=== PATIENT | female | born 1980 | race African-American/Black ===

== ENCOUNTER 2019-05-12 15:58 | Emergency (ER) | payer OTHER ==
[2019-05-12] MEDS ORDERED: ASPIRIN 81 MG TABLET, CHEWABLE PO ONE (16:29)
--- NOTE | 2019-05-12 16:36 | ER Document Report ---
ED Medical Screen (RME) - General Stated Complaint: CHEST PAIN Time Seen by Provider: 05/12/19 16:28 Primary Care Provider: MARIVEL MAST MD [Primary Care Provider] - Follow up as needed Mode of Arrival: Ambulatory Information source: Patient Notes: 39-year-old female presented to ED for complaint of substernal chest pain. She states the pain radiated down her left arm. She states after a while it felt like heartburn. And then later it felt like someone was stepping on her chest. Then she states it changed to a pinching feeling. She states she is concerned that she might be having a heart attack. She does have a past history of a cholecystectomy otherwise no medical history. She is alert oriented respirations regular and unlabored speaking in full sentences. 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 I have greeted and performed a rapid initial assessment of this patient. A comprehensive ED assessment and evaluation of the patient, analysis of test res ults and completion of medical decision making process will be conducted by an additional ED providers. - Related Data Allergies/Adverse Reactions: No Known Drug Allergies Allergy (Mild, Verified 05/12/19 16:19) dial soap Adverse Reaction (Unknown, Uncoded 05/12/19 16:19) Past Medical History - Past Medical History Cardiac Medical History: Pulmonary Medical History: Neurological Medical History: Denies: Hx Seizures GI Medical History: Musculoskeltal Medical History: Infectious Medical History: Past Surgical History: Physical Exam - Vital signs Vitals: Temp Pulse Resp BP Pulse Ox 98.7 F 84 16 141/84 H 97 05/12/19 16:11 05/12/19 16:11 05/12/19 16:11 05/12/19 16:11 05/12/19 16:11 Course - Vital Signs Vital signs: Temp Pulse Resp BP Pulse Ox 98.7 F 84 16 141/84 H 97 05/12/19 16:11 05/12/19 16:11 05/12/19 16:11 05/12/19 16:11 05/12/19 16:11 Doctor's Discharge - Discharge Referrals: MARIVEL MAST MD [Primary Care Provider] - Follow up as needed
--- NOTE | 2019-05-12 17:02 | RADIOLOGY REPORT (SQ) ---
EXAM DESCRIPTION: CHEST 2 VIEWS COMPLETED DATE/TIME: 05/12/2019 4:55 pm REASON FOR STUDY: chest pain COMPARISON: 03/22/2011 EXAM PARAMETERS: NUMBER OF VIEWS: two views TECHNIQUE: Digital Frontal and Lateral radiographic views of the chest acquired. RADIATION DOSE: NA LIMITATIONS: none FINDINGS: LUNGS AND PLEURA: No opacities, masses or pneumothorax. No pleural effusion. MEDIASTINUM AND HILAR STRUCTURES: No masses or contour abnormalities. HEART AND VASCULAR STRUCTURES: Heart normal size. No evidence for failure. BONES: No acute findings. HARDWARE: None in the chest. OTHER: No other significant finding. IMPRESSION: NO ACUTE RADIOGRAPHIC FINDING IN THE CHEST. TECHNICAL DOCUMENTATION: JOB ID: [id number] [employer]- All Rights Reserved Reading location - IP/workstation name: [email or web address]
[2019-05-12 17:27] LABS: ALBUMIN 4.7 g/dL (3.5-5.0); ALKALINE PHOSPHATASE 76 U/L (38-126); ANION GAP 10 (5-19); ASPARTATE AMINO TRANSFERASE 23 U/L (14-36); BILIRUBIN,DIRECT 0.2 mg/dL (0.0-0.4); BILIRUBIN,TOTAL 0.6 mg/dL (0.2-1.3); BLOOD UREA NITROGEN 10 mg/dL (7-20); CARBON DIOXIDE 26 mmol/L (22-30); CHLORIDE 103 mmol/L (98-107); CREATINE KINASE 169 U/L (30-135); GLUCOSE 112 mg/dL (75-110); POTASSIUM 4.3 mmol/L (3.6-5.0); TOTAL PROTEIN 8.6 g/dL (6.3-8.2)
[2019-05-12 17:39] LABS: TROPONIN I < 0.012 ng/mL
[2019-05-12] MEDS ORDERED: MAG HYDROX/AL HYDROX/SIMETH SUSP 30 ML UDCUP PO ONE (18:03)
[2019-05-12] MEDS ORDERED: METOCLOPRAMIDE HCL ORAL SOLN 10 MG/10 ML UDCUP PO ONE (18:03)
[2019-05-12] MEDS ORDERED: LIDOCAINE 2% VISCOUS SOLN 20 ML UDCUP PO ONE (18:03)
[2019-05-12 18:26] LABS: INTERNATIONAL RATION (INR) 1.05; PROTHROMBIN TIME 13.7 SEC (11.4-15.4)
[2019-05-12 18:27] LABS: PARTIAL THROMBOPLASTIN TIME 28.3 SEC (23.5-35.8)
[2019-05-12 18:56] LABS: HEMATOCRIT 39.3 % (36.0-47.0); HEMOGLOBIN 12.9 g/dL (12.0-15.5); MEAN CORPUSCULAR HEMOGLOBIN 29.5 pg (27.0-33.4); MEAN CORPUSCULAR HGB CONC 32.9 g/dL (32.0-36.0); MEAN CORPUSCULAR VOLUME 90 fl (80-97); RED BLOOD COUNT 4.39 10^6/uL (3.72-5.28); RED CELL DISTRIBUTION WIDTH 14.5 % (11.5-14.0); WHITE BLOOD COUNT 5.7 10^3/uL (4.0-10.5)
--- NOTE | 2019-05-12 19:22 | RADIOLOGY REPORT (SQ) ---
EXAM DESCRIPTION: CTA CHEST COMPLETED DATE/TIME: 05/12/2019 7:07 pm REASON FOR STUDY: cp COMPARISON: None. TECHNIQUE: CT scan of the chest performed using helical scanning technique with dynamic intravenous contrast injection. Images reviewed with lung, soft tissue and bone windows. Reconstructed coronal and sagittal MPR images reviewed. Additional 3 dimensional post-processing performed to develop Maximal Intensity Projection images ([place] P). All images stored on PACS. All CT scanners at this facility use dose modulation, iterative reconstruction, and/or weight based d osing when appropriate to reduce radiation dose to as low as reasonably achievable (ALARA). [facility]: Dose Right [facility]: CareDose [facility]: Dose Right [facility]: Teradose 4D [facility]: Evocalize CONTRAST TYPE AND DOSE: contrast/concentration: Isovue 350.00 mg/ml; Total Contrast Delivered: 69.0 ml; Total Saline Delivered: 80.0 ml Contrast bolus optimized for the pulmonary arteries. Not diagnostic for the aorta. RENAL FUNCTION: GFR > 60. RADIATION DOSE: CT Rad equipment meets quality standard of care and radiation dose reduction techniq ues were employed. CTDIvol: 19.8 - 23.2 mGy. DLP: 862 mGy-cm. . LIMITATIONS: None. FINDINGS: LUNGS AND PLEURA: The trachea and main bronchi are patent. There is no bronchiectasis or mucus plugging. The subpleural opacity in the posterior basal segment of the right lower lobe is non specific and could represent an area of round atelectasis. There is no alveolar consolidation or sebastian und-glass opacification. There is no pulmonary nodule or mass. There is no pleural effusion, pleura l thickening or pleural calcification. AORTA AND GREAT VESSELS: Evaluation of the thoracic aorta is limited as the contrast bolus was optimi zed for evaluation of the pulmonary arteries. There is no thoracic aortic dissection or aneurysmal d ilatation. HEART: No cardiomegaly or pericardial effusion. PULMONARY ARTERIES: No pulmonary embolus. HILAR AND MEDIASTINAL STRUCTURES: No enlarged mediastinal hilar lymph nodes. HARDWARE: None in the chest. UPPER ABDOMEN: No acute findings. THYROID AND OTHER SOFT TISSUES: No masses or adenopathy. BONES: No acute finding. 3D MIPS: Confirm above findings. OTHER: No other finding. IMPRESSION: No pulmonary embolus. The subpleural opacity in the posterior basal segment of the righ t lower lobe is nonspecific and could represent an area of round atelectasis. COMMENT: Quality ID # [id number]: Final reports with documentation of one or more dose reduction techniques (e.g., Automated exposure control, adjustment of the mA and/or kV according to patient size, use of iterative reconstruction technique) TECHNICAL DOCUMENTATION: JOB ID: [id number] [employer]- All Rights Reserved Reading location - IP/workstation name: [email or web address]
[2019-05-12 19:24] LABS: ABSOLUTE LYMPHOCYTES# (MANUAL) 1.9 10^3/uL (0.5-4.7); ABSOLUTE MONOCYTES # (MANUAL) 0.2 10^3/uL (0.1-1.4); BASOPHILS % (MANUAL) 1 % (0-2); EOSINOPHILS % (MANUAL) 1 % (0-6); LYMPHOCYTES % (MANUAL) 34 % (13-45); MONOCYTES % (MANUAL) 3 % (3-13); SEGMENTED NEUTROPHILS % (MAN) 61 % (42-78); TOTAL CELLS COUNTED 100
[2019-05-12 19:25] LABS: ANISOCYTOSIS SLIGHT; HYPOCHROMASIA SLIGHT; PLATELET CLUMPS PRESENT; PLATELET COMMENT ADEQUATE; PLATELET COUNT 163 10^3/uL (150-450)
--- NOTE | 2019-05-12 19:58 | EKG REPORT ---
SEVERITY:- ABNORMAL ECG - SINUS RHYTHM LEFT ATRIAL ABNORMALITY : Confirmed by: Elvia Kennedy MD 12-May-2019 19:57:52
--- NOTE | 2019-05-12 20:56 | ER Document Report ---
ED Cardiac - General Chief Complaint: Chest Pain Stated Complaint: CHEST PAIN Time Seen by Provider: 05/12/19 16:28 Primary Care Provider: MARIVEL MAST MD [ACTIVE STAFF] - Follow up as needed Mode of Arrival: Ambulatory Information source: Patient - [facility] Notes: Patient presents with chest pain that started approximately 2 PM. She states that it was between both breast and sharp. Nothing made it better or worse. She states it then radiated over towards the left shoulder. And now she has a sharp poking sensation in the left upper chest. No significant shortness of breath. No nausea or vomiting. No sweating. No previous history of cardiac disease. Patient states she has had no type of cardiac evaluation in the past. This pain has been constant. Patient denies any trauma. No recent cough cold or congestion. - Related Data Allergies/Adverse Reactions: No Known Drug Allergies Allergy (Mild, Verified 05/12/19 16:19) dial soap Adverse Reaction (Unknown, Uncoded 05/12/19 16:19) Past Medical History - General Information source: Patient - Social History Smoking Status: Never Smoker Frequency of alcohol use: None Drug Abuse: None Family History: Reviewed & Not Pertinent Patient has suicidal ideation: No Patient has homicidal ideation: No - Past Medical History Cardiac Medical History: Pulmonary Medical History: Neurological Medical History: Denies: Hx Seizures GI Medical History: Musculoskeletal Medical History: Infectious Medical History: Past Surgical History: Review of Systems - Review of Systems Constitutional: denies: Chills, Fever Cardiovascular: Chest pain. denies: Palpitations Respiratory: denies: Cough Gastrointestinal: denies: Diarrhea, Vomiting -: Yes All other systems reviewed and negative Physical Exam - Vital signs Vitals: Temp Pulse Resp BP Pulse Ox 98.7 F 84 16 141/84 H 97 05/12/19 16:11 05/12/19 16:11 05/12/19 16:11 05/12/19 16:11 05/12/19 16:11 Interpretation: Hypertensive - General General appearance: Appears well, Alert - HEENT Head: Normocephalic, Atraumatic Eyes: Normal Pupils: PERRL - Respiratory Respiratory status: No respiratory distress Chest status: Nontender Breath sounds: Normal Chest palpation: Normal - Cardiovascular Rhythm: Regular Heart sounds: Normal auscultation Murmur: No - Abdominal Inspection: Normal Distension: No distension Bowel sounds: Normal Tenderness: Nontender Organomegaly: No organomegaly - Back Back: Normal, Nontender - Extremities General upper extremity: Normal inspection, Nontender, Normal color, Normal ROM, Normal temperature General lower extremity: Normal inspection, Nontender, Normal color, Normal ROM, Normal temperature, Normal weight bearing. No: Crescencio's sign - Neurological Neuro grossly intact: Yes Cognition: Normal Orientation: AAOx4 [place] Coma Scale Eye Opening: Spontaneous [place] Coma Scale Verbal: Oriented [place] Coma Scale Motor: Obeys Commands [place] Coma Scale Total: 15 Speech: Normal Motor strength normal: LUE, RUE, LLE, RLE Sensory: Normal - Psychological Associated symptoms: Normal affect, Normal mood - Skin Skin Temperature: Warm Skin Moisture: Dry Skin Color: Normal Course - Re-evaluation Re-evalutation: 05/12/19 20:52 Patient presents with chest pain that is been constant. She has negative enzymes. She has a heart score of 1. She appears to have some hypertension which I will start the patient on Norvasc. I feel the patient is stable for d ischarge and to follow-up as an outpatient with a stress test. She has a CT scan shows no evidence of pulmonary embolism or aortic pathology. She does have some question around atelectasis but this is at the right base of the lung and does not appear associated in any way with her symptoms. - Vital Signs Vital signs: Temp Pulse Resp BP Pulse Ox 98.3 F 84 11 L 140/96 H 99 05/12/19 19:01 05/12/19 16:11 05/12/19 19:01 05/12/19 19:01 05/12/19 19:01 - Laboratory Result Diagrams: 05/12/19 18:42 05/12/19 16:34 Laboratory results interpreted by me: 05/12/19 05/12/19 16:34 18:42 RDW 14.5 H Glucose 112 H Creatine Kinase 169 H Total Protein 8.6 H - Diagnostic Test Radiology reviewed: Image reviewed, Reports reviewed - EKG Interpretation by Me EKG shows normal: Sinus rhythm Rate: Normal - 82 Rhythm: NSR Baring/QRS: No: Right axis deviation, Left axis deviation Discharge - Discharge Clinical Impression: Uncontrolled hypertension Chest pain Qualifiers: Chest pain type: unspecified Qualified Code(s): R07.9 - Chest pain, unspecified Condition: Stable Disposition: HOME, SELF-CARE Instructions: Chest Pain of Unclear Cause ([facility]), High Blood Pressure ([facility]) Additional Instructions: Please call your family doctor as soon as possible to arrange for an evaluation. Please have them recheck your blood pressure. Please discuss an outpatient cardiac stress test. Prescriptions: Amlodipine Besylate [Norvasc 2.5 mg Tablet] 2.5 mg PO DAILY #30 tablet Referrals: MARIVEL MAST MD [ACTIVE STAFF] - Follow up tomorrow
[2019-05-12 21:52] VITALS: BP 136/103
== END 2019-05-12 21:56 | disposition home or self-care (01) ==
LOC: ER 15:58
DX: R07.9 Chest pain, unspecified (principal); I10 Essential (primary) hypertension
CPT/HCPCS: 93005; 99285; 36415; 82553; 82550; 83735; 84443; 85025; 85610; 85730; 80053; 84484; 71046; 71275; 93010; J3490